=== PATIENT | male | born 1970 | race Caucasian/White ===

== ENCOUNTER 2021-06-04 08:45 | Day surgery (SDC) | payer OTHER, SELFPAY ==
[~2021-06-04] VITALS: Ht 170.2 cm; Wt 82.6 kg
[2021-06-04] MEDS ORDERED: LIDOCAINE 2% 100 MG/5 ML UJET TP ONE (12:35)
[2021-06-04] MEDS ORDERED: fentaNYL citrate 0.05 MG/ML VIAL ONE (12:35)
[2021-06-04] MEDS ORDERED: MIDAZOLAM 5 MG/5 ML VIAL ONE (12:35)
[2021-06-04] MEDS ORDERED: fentaNYL citrate 0.05 MG/ML VIAL IVP ONE (13:40)
[2021-06-04] MEDS ORDERED: fentaNYL citrate 0.05 MG/ML VIAL IVP SCH (13:43)
== END 2021-06-04 13:55 | disposition home or self-care (01) ==
LOC: MDS 08:45 → MMU 09:35 → MDS 13:55
PROVIDERS: ATTEND Internal Medicine Gastroenterology
DX: K62.5 Hemorrhage of anus and rectum (principal); K64.8 Other hemorrhoids; Z20.822 Contact with and (suspected) exposure to COVID-19; Z79.899 Other long term (current) drug therapy
CPT/HCPCS: 45378; 87426; J3010; J2250